=== PATIENT | male | born 1935 | race Caucasian/White ===

== ENCOUNTER 2020-05-28 22:29 | Inpatient (IN) ==
[2020-05-28] MEDS ORDERED: Acetaminophen 325 MG TABLET PO PRN (23:12)
[2020-05-28] MEDS ORDERED: Ondansetron 4 MG/2 ML VIAL IVP PRN (23:12)
[2020-05-28] MEDS ORDERED: *HR* Dextrose 50 % in Water (Vial) 50 ML VIAL IVP PRN (23:15)
[2020-05-28] MEDS ORDERED: D5% in Water 1,000 ML IVC PRN (23:15)
[2020-05-28] MEDS ORDERED: Dextrose Gel 15 GM/37.5 ML TUBE PO PRN ×2 (23:15)
[2020-05-29] MEDS ORDERED: *HR* Enoxaparin 40 MG/0.4 ML SYRINGE SQ SCH (06:00)
[2020-05-29] MEDS ORDERED: carvediloL 6.25 MG TABLET PO SCH (08:00)
[2020-05-29] MEDS: Insulin LISPRO 300 UNITS/3 ML VIAL SQ SCH ×2 (08:24→11:46)
[2020-05-29] MEDS ORDERED: Bumetanide 1 MG TABLET PO SCH (09:00)
[2020-05-29] MEDS ORDERED: Sacubitril/Valsartan 24/26 MG 1 TABLET PO SCH (09:00)
[2020-05-29] MEDS ORDERED: Insulin DETEMIR 100 UNIT/ML X5UNITS SQ SCH (09:00)
[2020-05-29] MEDS ORDERED: Magnesium Oxide 400 MG TABLET PO SCH (09:00)
[2020-05-29] MEDS ORDERED: Furosemide 20 MG TABLET PO SCH (09:00)
[2020-05-29] MEDS ORDERED: Aspirin Enteric Coated 81 MG Tablet PO SCH (09:00)
[2020-05-29] MEDS ORDERED: Budesonide/Formoterol 80/4.5 1 PUFF INH IH SCH (10:00)
[2020-05-29 10:48] LABS: ABG Base Excess -6 mEq/L (-2 to 3); ABG HCO3 21 mEq/L (21-27); ABG Oxygen Saturation 91 % (95-98); ABG PCO2 46 mmHg (35-45); ABG PH 7.26 pH Units (7.32-7.45); ABG PO2 71 mmHg (85-104); ABG TCO2 22 mEq/L (20-26)
[2020-05-29 10:49] LABS: Basophils % 0.3 %; Eosinophils # 0.1 K/mcL (0.0-0.6); Eosinophils % 0.3 %; Hematocrit 44.1 % (37.5-50.1); Hemoglobin 14.1 g/dL (12.9-16.9); Immature Granulocytes % 1.9 % (0-4); Lymphocytes # 1.8 K/mcL (0.6-4.6); Lymphocytes % 11.6 %; Mean Corpuscular Hemoglobin 29.4 pg (28.0-33.3); Mean Corpuscular Volume 92.1 fL (83.0-100.0); Mean Platelet Volume 11.5 fL (9.4-12.4); Monocytes % 12.5 %; Neutrophils # 11.5 K/mcL (1.6-8.9); Platelet Count 209 K/mcL (140-400); Red Blood Count 4.79 M/mcL (4.19-5.50); Red Cell Distribution Width 13.9 % (11.5-14.5); Segmented Neutrophils % 73.4 %; White Blood Count 15.6 K/mcL (4.3-11.1)
[2020-05-29 10:52] LABS: Basophils # 0.1 K/mcL (0.0-0.2)
[2020-05-29] MEDS ORDERED: Furosemide 40 MG/4 ML VIAL IVP SCH (11:00)
[2020-05-29 11:47] VITALS: BP 122/72
[2020-05-29 11:55] LABS: Albumin 3.3 g/dL (3.5-5.7); Albumin/Globulin Ratio 0.9 (1.1-2.2); Bilirubin,Total 0.4 mg/dL (0.3-1.0); Globulin 3.6 g/dL (2.4-3.5); Magnesium 2.3 mg/dL (1.6-2.6); Potassium 4.5 mEq/L (3.5-5.1); Total Protein 6.9 g/dL (6.4-8.9)
[2020-05-29] MEDS ORDERED: Vancomycin 1,500 MG/265 ML IV.SOLN IVPB SCH (18:00)
[2020-05-29] MEDS ORDERED: Insulin LISPRO 300 UNITS/3 ML VIAL SQ SCH (21:00)
== END 2020-05-29 14:06 | disposition other institution (70) | DRG 177 ==
LOC: INPGRE 05-29 02:38
PROVIDERS: ADMIT Family Medicine; ATTEND Family Medicine